=== PATIENT | male | born 1955 | race Caucasian/White ===

== ENCOUNTER 2017-11-22 17:51 | Observation (INO) | payer BC ==
--- NOTE | 2017-11-22 18:32 | ED ---
HPI Chest Pain - HPI Summary HPI Summary: A 62 y/o M arrives by car presents to ED with c/o sudden onset L-sided CP onset approx 1700 mostly resolved at bedside. CP described as pressure. Associated sx : flushing of face and ears; L-sided pressure to neck, UE; mild SOB. Denies dyspnea, pedal edema. Last episode of CP similar to these sx was a few months ago. On 10/30/17, he had a catherization performed by Dr. Early, executive sous chef in [place], [place]. 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 Pt was at rest at onset. No PMHx : DVT, PE. No drugs, rare ETOH. This is wendye, Janet Peña, documenting for attending Dr. Wolf Panchal MD. - History of Current Complaint Chief Complaint: EDChestPainROMI Time Seen by Provider: 11/22/17 18:17 Hx Obtained From: Patient Onset/Duration: Started Hours Ago, Resolved - mostly Timing: Constant Initial Severity: Moderate Current Severity: Mild Pain Intensity: 2 Pain Scale Used: 0-10 Numeric Chest Pain Location: Left Anterior, Left Lateral Character: Pressure/Squeezing - Allergy/Home Medications Allergies/Adverse Reactions: Allergies Allergy/AdvReac Type Severity Reaction Status Date / Time No Known Allergies Allergy Verified 06/07/12 17:11 Home Medications: Home Medications Aspirin EC TAB* [Ecotrin EC Low Dose 81 MG*] 81 mg PO DAILY 11/22/17 [History Confirmed 11/22/17] Clopidogrel TAB* [Plavix TAB*] 75 mg PO DAILY 11/22/17 [History Confirmed ] Glucosam/Griffin-Msm1/C/Goran/Bosw [Osteo Bi-Flex Advanced Tr] 1 tab PO DAILY [History Confirmed 11/22/17] Lansoprazole CAP (NF) [Prevacid CAP (NF)] 30 mg PO QAM 11/22/17 [History Confirmed 11/22/17] Lutein/Zeaxanthin [Ocuvite Lutein 25 25-5 mg] 1 cap PO QAM 11/22/17 [History Confirmed 11/22/17] Metoprolol Succinate XL TAB* [Toprol XL TAB*] 25 mg PO QPM 11/22/17 [History Confirmed 11/22/17] [place]-3 Fatty Acids (Nf) [Fish Oil (NF)] 1,000 mg PO DAILY 11/22/17 [History Confirmed 11/22/17] Ubidecarenone [Co Q-10] 100 mg PO DAILY 11/22/17 [History Confirmed 11/22/17] guaiFENesin ER TAB [Mucinex*] 600 mg PO BID PRN 11/22/17 [History Confirmed 06/10] PMH/Surg Hx/FS Hx/Imm Hx Previously Healthy: No Cardiovascular History: Reports: Hx Hypertension, Other Cardiovascular Problems/ Disorders - HAS HAD HEART WORKUP AT [facility] [address] GI History: Reports: Other GI Disorders - diverticulosis, choleycystitis Denies: Hx Cirrhosis Sensory History: Reports: Other Sensory Impairments - central serous retinopathy Denies: Hx Contacts or Glasses, Hx Hearing Aid Opthamlomology History: Reports: Other Sensory Impairments - central serous retinopathy Denies: Hx Contacts or Glasses Neurological History: Reports: Other Neuro Impairments/Disorders - vestibular neuritis Infectious Disease History: No Infectious Disease History: Denies: Hx Clostridium Difficile, Hx Hepatitis, Hx Human Immunodeficiency Virus (HIV), Hx Shingles, Hx Tuberculosis, Traveled Outside the [place] in Last 30 Days - Family History Family History: neg anaesthesia reaction - Social History 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 Negative: Fever, Chills Negative: Erythema Negative: Sore Throat Positive: Chest Pain Positive: Shortness Of Breath - mild. Negative: Cough Negative: Abdominal Pain, Vomiting, Nausea Negative: dysuria, hematuria Positive: Other - mild "pressure" to neck, UE. Negative: Myalgia, Edema Negative: Rash Neurological: Other - neg: dizziness All Other Systems Reviewed And Are Negative: Yes Physical Exam - Summary Physical Exam Summary: Constitutional: Well-developed, Well-nourished, Alert. (-) Distressed Skin: Warm, Dry HENT: Normocephalic; Atraumatic Eyes: Conjunctiva normal Neck: Musculoskeletal ROM normal neck. (-) JVD, (-) Stridor, (-) Tracheal deviation Cardio: Rhythm regular, rate normal, Heart sounds normal; Intact distal pulses; The pedal pulses are 2+ and symmetric. Radial pulses are 2+ and symmetric. (-) Murmur Pulmonary/Chest wall: Effort normal. (-) Respiratory distress, (-) Wheezes, (-) Rales Abd: Soft, (-) epigastric tenderness, (-) Distension, (-) Guarding, (-) Rebound Musculoskeletal: (-) Edema Lymph: (-) Cervical adenopathy Neuro: Alert, Oriented x3 Psych: Mood and affect Normal Triage Information Reviewed: Yes Vital Signs On Initial Exam: Initial Vitals Temp Pulse Resp BP Pulse Ox 97.8 F 67 19 167/106 96 11/22/17 17:57 11/22/17 17:57 11/22/17 17:57 11/22/17 17:57 11/22/17 17:57 Vital Signs Reviewed: Yes Diagnostics - Vital Signs Vital Signs Temp Pulse Resp BP Pulse Ox 11/22/17 17:57 97.8 F 67 19 167/106 96 - Laboratory Result Diagrams: 11/22/17 18:54 11/22/17 18:54 Lab Statement: Any lab studies that have been ordered have been reviewed, and results considered in the medical decision making process. - Radiology CXR Xray Interpretation: No Acute Changes - IMPRESSION: No active cardiopulmonary dz. ED physician has reviewed this report. Radiology Interpretation Completed By: Radiologist - EKG 1808 Cardiac Rate: Bradycardia - 54bpm EKG Rhythm: Sinus Bradycardia EKG Interpretation: no STEMI Chest Pain Course/Dx - Diagnoses Provider Diagnoses: Chest pain, unspecified - Provider Notifications Discussed Care Of Patient With: Vikki Gutierrez - hospitalist Time Discussed With Above Provider: 19:40 Instructed by Provider To: Admit As Inpatient Discharge - Sign-Out/Discharge Documenting (check all that apply): Patient Departure - Adm - Discharge Plan Disposition: ADMITTED TO [facility] Referrals: Ny Vu MD [Primary Care Provider] -
[2017-11-22] MEDS ORDERED: Nitroglycerin 2% OINT* 1 GM PAK TOPICAL ONE (18:40)
--- NOTE | 2017-11-22 18:53 | RAD ---
Indication: Chest pain. Single frontal view of the chest performed at 1829 hours was reviewed. Comparison is made with previous exam dated June 05, 2012. No mediastinal shift is noted. Heart is of normal size and configuration. Lung sims appear clear. IMPRESSION: NO ACTIVE CARDIOPULMONARY DISEASE IS NOTED.
[2017-11-22 19:03] LABS: ABS Basophils 0.1 10^3/ul (0-0.2); ABS Eosinophils 0.1 10^3/ul (0-0.6); ABS Lymphocytes 1.5 10^3/ul (1.0-4.8); ABS Monocytes 0.5 10^3/ul (0-0.8); ABS Neutrophils 3.4 10^3/ul (1.5-7.7); ABS Nucleated RBC 0 10^3/ul; Eosinophil % 2.6 % (0-6); Hematocrit 40 % (42-52); Hemoglobin 13.7 g/dl (14.0-18.0); Lymphocyte % 26.3 % (25-47); Mean Corpuscular HGB Conc 34 g/dl (31-36); Mean Corpuscular Hemoglobin 29 pg (27-31); Mean Corpuscular Volume 85 fL (80-94); Mean Platelet Volume 8.2 um3 (7.4-10.4); Nucleated Red Blood Cells % 0; Platelet Count 176 10^3/ul (150-450); Red Cell Distribution Width 14 % (10.5-15); White Blood Count 5.6 10^3/ul (3.5-10.8)
[2017-11-22 19:19] LABS: EGFR Non-African American 84.7 (>60)
[2017-11-22] MEDS ORDERED: Ondansetron INJ* 2 MG/ML VIAL IV PRN (20:18)
[2017-11-22] MEDS ORDERED: Acetaminophen TAB* 325 MG PO PRN (20:18)
[2017-11-22] MEDS ORDERED: amLODIPine TAB* 5 MG PO SCH (21:00)
--- NOTE | 2017-11-22 23:02 | HP ---
CC: Dr. Reardon * HISTORY AND PHYSICAL: DATE OF ADMISSION: 11/22/17 PRIMARY CARE PROVIDER: None. ATTENDING PHYSICIAN WHILE IN THE HOSPITAL: Vikki Sanches MD * (report dictated by Te Durbin NP). CONSULTING APPLICATIONS COORDINATOR: Dr. Reardon. CHIEF COMPLAINT: Chest pain. HISTORY OF PRESENT ILLNESS: Mr. Mei is a 62-year-old male patient who has a known history of coronary artery disease. He says he had a cath about a month ago in [place] and was told that he would need stents but did not undergo intervention for unknown reasons. We are trying to get records. He has a history of hypertension, GERD and hyperlipidemia. He gives a story that he has been having chest discomfort intermittently for the last year and half, he has noticed recently in the last several months. He has been having decreasing exercise tolerance, becoming more short of breath easily and he has been intermittently having chest discomfort. He saw a fisher quahog from [place] where he is from, he is up here visiting for a conference and he is from the area originally and he is visiting. He had a cath done and he says that he was told he had partial blockages of the circumflex and may be of the RCA. He comes in today because he was travelling over from [place] and that is where his conference was and he was coming to visit and he got out of his car and he noted that he started to do some walk, he was feeling lousy and he thought may be some walking will make him feel good and when he started walking, he started getting chest heaviness, pressure, discomfort that went into his shoulder and down his arm. He felt flushed. He was in the [place] area and he immediately called 911 and he came to the hospital. He says his discomfort is now gone. He has not had any more episodes and that was around 5:10 this afternoon he says. He denies any recent fevers or chills. He denies any calf pain, lower leg swelling, or any lower calf redness. He says that he did not feel short of breath or nauseous with this episode. It lasted several minutes, came into the ED today. Because of his exertional chest pain, his recent cath that he reports to us, we were asked to evaluate for admission. PAST MEDICAL HISTORY: Significant for; 1. Hypertension. 2. Hyperlipidemia. 3. GERD. 4. CAD. PAST SURGICAL HISTORY: 1. He has had a right knee arthroscopy. 2. Laparoscopic cholecystectomy. 3. Heart catheterization, he said done October 30 of this year. HOME MEDICATIONS: Include; 1. Metoprolol 25 mg p.o. at bedtime. 2. Aspirin 81 mg daily. 3. Mucinex 600 mg p.o. b.i.d. as needed. 4. Plavix 75 mg daily. 5. Coenzyme Q10 of 100 mg p.o. daily. 6. Osteo Bi-Flex 1 tablet p.o. daily. 7. [place]-3 fatty acid 1000 mg p.o. daily. 8. Ocuvite 1 capsule p.o. daily. 9. Prevacid 30 mg p.o. q.p.m. ALLERGIES TO MEDICATIONS: No known drug allergies. FAMILY HISTORY: Mother had history of an MA, brother had history of TIA, father had history of CHF. SOCIAL HISTORY: He does not smoke, he does not drink. Surrogate decision maker is his mother. REVIEW OF SYSTEMS: There is no documented fever. He is denying having any significant weight change. There is no double vision. There is no ear discharge. He is denying having any rhinorrhea. There was no sore throat, no thyroid enlargement. He did admit to chest pain per my HPI. There is no orthopnea, there is no nocturnal dyspnea. He is denying having any abdominal pain. There is no nausea, no vomiting, no dysuria. No frequency. There was no seizure. No loss of consciousness. No pruritus. No skin ulceration. Review of 14 systems completed, all others negative. PHYSICAL EXAMINATION GENERAL: At this time, Mr. Mei is a 62-year-old male patient who appears to be well nourished, well developed, he is sitting in the ED stretcher, does not appear to be in acute distress. VITAL SIGNS: Blood pressure 150/93, pulse of 59, respirations 10, O2 saturations 95%, temperature 97.8. HEENT: Head: Atraumatic, normocephalic. Eyes: EOMs are intact. Sclerae are anicteric and not pale. NECK: Supple. Throat: Oral mucosa appears to be moist. No oropharyngeal erythema. LUNGS: Clear to auscultation bilaterally. No wheezes, rales, or rhonchi. HEART: Sounds S1, S2. He had a regular rate and rhythm. No murmurs, rubs or gallops. ABDOMEN: Soft. It was flat, nontender. Bowel sounds are present. EXTREMITIES: Pulses were 2+ throughout, moving all 4 extremities with 5/5 strength. NEUROLOGIC: He is awake, he is alert. He is oriented x3. His tongue is midline. Paint Trimmer Pipe Bowls were equal. He had no gross focal deficits. SKIN: Grossly intact. LABORATORY DATA: Today are revealing WBC 5.6, RBC 4.70, hemoglobin 13.7, hematocrit 40, platelet count 176, sodium 143, potassium 3.5, chloride 103, bicarb 32, BUN 11, creatinine 0.91, glucose 102, lactate 0.9. Calcium 9.2, total bili 0.6. AST 19, ALT 17. Alk phos 55, troponin 0. Albumin of 4.2. Chest x-ray obtained today shows no active cardiopulmonary disease. He had an EKG obtained today showing sinus bradycardia at the rate of 54. He had no ST elevations. He had flat T waves in lead III only. Last EKG I have is from 5 years ago as T waves are flattened in lead III at that point as well, but no significant changes. Old medical records reviewed. ASSESSMENT AND PLAN: Mr. Mei is a 62-year-old male patient coming into the ED today, complains of chest discomfort that was exertional. He has had a heart catheterization done about a month ago which did show coronary artery disease and he was told that he was going to need stents. Unfortunately, we do not have access to his records but because of the exertional chest pain, he will be admitted under observatory status for; 1. Chest pain: This is probably angina. He is chest pain free now. He is on aspirin, Plavix. He is also on a beta jigna. We will continue these medications for the time being. I would like to get the cath report records. I have placed a consult to Cardiology. I will trend his troponin. I ordered an EKG for tomorrow morning, lipid panel and A1c and continue with maximum medical management. 2. Hypertension: His blood pressure is not well controlled. I am going to go ahead and give him 5 of Norvasc tonight and we will continue to follow. I will also continue his beta jigna. 3. Coronary artery disease: Again he is on aspirin, Plavix, beta jigna. We will continue. 4. Gastroesophageal reflux disease: Continue Prevacid. 5. Hyperlipidemia: We will check lipid panel in the morning. 6. DVT prophylaxis: He will be placed on heparin subcu. 7. Code status: He is full code. 8. Fluids, electrolyte, nutrition: He can have a heart-healthy diet. He will be n.p.o. after midnight. TIME SPENT: Time spent on the admission was 60 minutes, greater than half of the time was spent [id number] with the patient, obtaining my history and physical, the other half of the time was spent going over the plan of care with the patient and implementing the plan of care. I did discuss plan of care with my attending, Dr. Sanches, she is in agreement. Please note that the fisher quahog who did the heart catheterization was a Dr. Samson Delarosa and contact number there is [phone]. I will touch base with their office in the morning, they open at 8 o'clock. TE DURBIN, KOFFI [id number]/[facility] #: [id number] SURENDRA
[2017-11-22] MEDS: Heparin VIAL(*) 5000 UNITS/ML VIAL (FIVE THOUSAND) SUBCUT SCH (23:11)
[2017-11-23] MEDS: Heparin VIAL(*) 5000 UNITS/ML VIAL (FIVE THOUSAND) SUBCUT SCH (05:53)
[2017-11-23 06:21] LABS: ABS Basophils 0.1 10^3/ul (0-0.2); ABS Eosinophils 0.2 10^3/ul (0-0.6); ABS Lymphocytes 1.7 10^3/ul (1.0-4.8); ABS Monocytes 0.5 10^3/ul (0-0.8); ABS Neutrophils 3.2 10^3/ul (1.5-7.7); ABS Nucleated RBC 0 10^3/ul; Eosinophil % 3.5 % (0-6); Hematocrit 37 % (42-52); Hemoglobin 12.8 g/dl (14.0-18.0); Lymphocyte % 30.4 % (25-47); Mean Corpuscular HGB Conc 34 g/dl (31-36); Mean Corpuscular Hemoglobin 29 pg (27-31); Mean Corpuscular Volume 86 fL (80-94); Mean Platelet Volume 8.4 um3 (7.4-10.4); Nucleated Red Blood Cells % 0.1; Platelet Count 150 10^3/ul (150-450); Red Blood Count 4.33 10^6/ul (4.00-5.40); Red Cell Distribution Width 14 % (10.5-15); White Blood Count 5.7 10^3/ul (3.5-10.8)
[2017-11-23 06:39] LABS: EGFR Non-African American 96.9 (>60)
[2017-11-23 07:21] LABS: INR 0.96 (0.77-1.02)
[2017-11-23] MEDS ORDERED: CMC: Pantoprazole TAB (NF) 40 MG TAB PO SCH (09:00)
[2017-11-23] MEDS ORDERED: Clopidogrel TAB* 75 MG PO SCH (09:00)
[2017-11-23] MEDS ORDERED: Aspirin EC TAB* 81 MG TAB.EC PO SCH (09:00)
[2017-11-23] MEDS: KCL 20 MEQ/100 ML IVPREMIX* 20 MEQ/100 ML BAG IV SCH ×2 (09:51→11:56)
[2017-11-23 11:59] VITALS: BP 123/74
[2017-11-23] MEDS ORDERED: Potassium Chlor TAB* 20 MEQ TAB.ER PO SCH (12:00)
--- NOTE | 2017-11-23 15:36 | CONS ---
CC: Hospitalist Service; Dr. Hernández CARDIOLOGY CONSULT: DATE OF CONSULT: 11/23/17 HISTORY OF PRESENT ILLNESS: I was asked by hospitalist service to see this 62-year- old male patient , who lives in [place]. He is finishing some business, visiting [facility] and he had an episode of symptom of chest pain, lasted for about 15- minute and presented to the hospital after he called 911 and since then, he has been chest pain free. His trops x3 were 0. His EKG showed no acute ST-T daljit nges for ischemia or injury pattern. The patient said he had a cardiac catheterization done in [place], [place] on 10/30/17, he had some blockages and was recommended intervention with angioplasty and stenting, although it was not done for unknown reasons at the present time. Full cardiac cath report is pending at the moment. He is chest pain free now. He gives history of hypertension, hyperlipidem ia, although he is not on statin medication. He gives no symptoms of nausea, no vomiting, no shortne ss of breath, no jaw pain, no arm pain, no syncope, no dizziness, no hematochezia, no tachycardia, no palpitations, no history of myocardial infarction in the past, no history of diabetes mellitus, no h istory of congestive heart failure. He has been actually chest pain free. PAST MEDICAL HISTORY: Includes history of coronary artery disease, systemic arterial hypertension, h istory of hyperlipidemia, gastroesophageal reflux disease. PAST SURGICAL HISTORY: Includes right knee arthroscopy, laparoscopic cholecystectomy, and cardiac ca th done 10/30/17. MEDICATIONS: As an outpatient include: 1. Metoprolol 25 mg daily. 2. Aspirin 81 mg daily. 3. Plavix 75 mg daily. 4. CoQ10 100 mg daily. 5. [place]-3 fatty acid 1000 daily. 6. Prevacid 30 mg p.o. p.r.n. ALLERGIES: He had no known drug allergies. FAMILY HISTORY: His mom had history of coronary artery disease. SOCIAL HISTORY: He lives with his mom in [place]. He has 1 kid, doing well. He has no history of sm oking, no drinking, no history of illicit drug use. REVIEW OF SYSTEMS: His review of all other systems is essentially negative. PHYSICAL EXAM: On exam, he is awake, alert, oriented. He is not in acute distress. He is chest jarek n free. His vitals, his blood pressure is 110/65, pulse is 65, he is on sinus rhythm. Head and Neck Exam: Normocephalic, atraumatic head. Ears, nose, and throat are essentially benign. Neck: Supple . JVP is not elevated. No carotid bruits. No masses in the neck are appreciated. Chest: Clear to auscultation. No rales, no wheeze. No added sounds appreciated. Heart: Normal and regular, S1, S2. No added sound. No gallops, no rubs is appreciated. Abdomen: Benign, soft. Positive bowel sounds . Extremities: No edema, no cyanosis, no clubbing. Skin exam is normal. Psych: Normal affect and mood. RIB CLOTH KNITTER: No focal deficit is appreciated. DIAGNOSTIC STUDIES/LAB DATA: His EKG showed normal sinus rhythm, borderline left atrial abnormality, no acute ST-T changes suggestive for ischemia or injury. His labs, his sodium 143, potassium of 3.4, chloride 106, BUN 14, creatinine 0.81. His triglyceride 1 40, cholesterol 136, LDL 79, HDL 29. His white blood cell 5.7, hemoglobin 12.8, hematocrit 37, plate lets 150. His chest x-ray was reported to have no active cardiopulmonary disease. IMPRESSION: The patient is a 62-year-old male patient with: 1. Presentation with symptoms of chest pain, ruled out for myocardial infarction by negative troponi n. He is chest pain free. 2. The patient indicated that he had a cardiac cath in [place], [place] where he lives there, , with "blockages," was recommended angioplasty and stenting, although for unknown reasons to him a nd to us was not done. 3. Cardiac cath report is still pending, we are trying to obtain it from [facility]. 4. Systemic arterial hypertension. 5. Hyperlipidemia. 6. Nonspecific EKG abnormality. 7. Hypokalemia. 8. Family history of coronary artery disease. PLAN: The patient is currently chest pain free. He was ruled out with negative troponins x3. I dis cussed him with the hospitalist service. We will obtain and review his cardiac catheterization repor t done less than a month ago. He is to continue on aspirin, Plavix, beta-jigna, heparin. I will a dd statin and further recommendations will be pending his clinical outcome and the review of his card iac catheterization report. I answered all his concerns and questions up to his satisfaction. We wi ll follow him closely with you. [id number]/[facility] #: [id number]
[2017-11-23] MEDS ORDERED: Metoprolol Succinate XL TAB* 25 MG PO SCH (18:00)
[2017-11-23] MEDS ORDERED: Atorvastatin* 20 MG TAB PO SCH (21:00)
--- NOTE | 2017-11-24 13:40 | DS ---
CC: Dr. Ny Vu * DISCHARGE SUMMARY: DATE OF ADMISSION: 11/22/17 DATE OF DISCHARGE: 11/23/17 PRIMARY CARE PROVIDER: Dr. Ny Vu. MY ATTENDING WHILE IN THE HOSPITAL: Dr. Marianna Sherwood.* (DICTATED BY ROSELYN PIÑA) PRIMARY DISCHARGE DIAGNOSES: 1. Chest pain. 2. Coronary artery disease. SECONDARY DISCHARGE DIAGNOSES: 1. Hypertension. 2. Hyperlipidemia. 3. Gastroesophageal reflux disease. STUDIES DONE WHILE IN THE HOSPITAL: Electrocardiogram, 11/22/17, shows normal sinus rhythm, flattened T-waves in lead III. No other significant abnormalities. Repeat EKG from 11/23/17 shows no changes, rate of 49, QTc of 445, normal axis. Chest x-ray from 11/22/17 read as no active cardiopulmonary disease. MEDICATIONS AT DISCHARGE: 1. Metoprolol succinate 25 mg p.o. q.p.m. 2. Aspirin 81 mg p.o. daily. 3. Guaifenesin 600 mg p.o. b.i.d. as needed. 4. Clopidogrel 75 mg p.o. daily. 5. CoQ10 100 mg p.o. daily. 6. Osteo Bi-Flex 1 tab p.o. daily. 7. [place]-3 fatty acids 1000 mg p.o. daily. 8. Ocuvite 1 cap p.o. q.a.m. 9. Lansoprazole 30 mg p.o. q.a.m. 10. Atorvastatin 20 mg p.o. nightly. New medications at discharge: Lipitor. HOSPITAL COURSE: This is a brief summary of the patient's presentation. For more details, please see history and physical from Te Durbin NP, on . In brief, the patient is a 62-year-old male with past medical history significant for the above, who presented with intermittent chest discomfort for a year and a half, became worse over the last several months with decreasing exercise tolerance and shortness of breath on exertion. No other signs of congestive heart failure. The patient had a catheterization with his combat rifle crewmember in [place] on 09/30/17, which showed blockages in his arteries of 68% in the dominant RCA and 50% in the non- dominant circumflex. The patient came in because he felt poorly and had chest heaviness and discomfort that radiate to his shoulder and left arm. The patient's chest discomfort resolved on its own without intervention, nitroglycerin. The patient was admitted to the hospital. The patient's EKG was unremarkable. The patient had troponin x3 that were negative. The patient was slightly anemic, hypokalemic. The patient' s LDL cholesterol 79, HDL cholesterol 28.6. The patient's hemoglobin A1c was 5.6. The patient was seen in consultation by Dr. Hernández, who contacted his combat rifle crewmember from [place] and confirmed the results of the catheterization. It was recommended that the patient have a repeat catheterization with stent placement given his anginal symptoms. The patient stated that he preferred this to be done in [place] with his regular combat rifle crewmember and the patient was not having an active CT and this was deemed appropriate. The patient was ambulated around the unit. He was ambulated for approximately 7 minutes with no anginal chest discomfort. The patient was stable and amenable for discharge on 11/23/17. PHYSICAL EXAM ON DAY OF DISCHARGE: General: The patient is a 62-year-old male , who appears stated age and sitting comfortably in bed, in no acute distress. Vital Signs: At the time of evaluation, temperature 98.0, pulse rate 83, respiratory rate , oxygen saturation 98% on room air, blood pressure 123/ 74. HEENT: Head normocephalic, atraumatic. Sclerae anicteric. No conjunctival injection. Nasal mucosa moist. Oral mucosa moist. No pharyngeal erythema, discharge, or exudate. Neck: Supple, nontender. No lymphadenopathy. No carotid bruits auscultated. No JVD. Cardiac: Regular rate and rhythm. No clicks, murmurs, gallops, or rubs. Pulses 2+ in bilateral dorsalis pedis, posterior tibial, and radial areas. Respiratory: Clear to auscultation bilaterally. No wheezes, rales, or rhonchi. Good air exchange bilaterally. Abdomen: Soft, nontender, and nondistended. Bowel sounds present, normoactive in all 4 quadrants. No hepatosplenomegaly. No abdominal bruits auscultated. No hepatojugular reflux. Genitourinary: No suprapubic or CVA tenderness. Skin : Clean, dry, and intact. No rash. Neuro: Cranial nerves II through XII intact. No focal deficits. Alert and oriented x3. Psychiatric: Pleasant, cooperative. DISCHARGE PLAN: The patient will be discharged to home. The patient will be returning to [place] in approximately 2 weeks. The patient will at that time contact his primary care provider and his combat rifle crewmember for general medical management and to set up cardiac catheterization as discussed for his cardiology care. The patient to return the hospital for any alarming symptoms such as recurrent chest pain, severe shortness of breath, syncope, palpitations , or other alarming symptoms. The patient's heart rate was intermittently low while in the hospital, but he was asymptomatic during these episodes. The patient's metoprolol will be continued at this time; however, the ongoing appropriateness of this medication should be evaluated. TIME SPENT: Approximately 60 minutes was spent on this discharge, 30 of which was spent [id number] with the patient obtaining physical and discussing the treatment plan. ROSELYN PIÑA [id number]/[facility] #: [id number] SURENDRA
== END 2017-11-23 13:45 | disposition home or self-care (01) ==
LOC: ED 17:51 → MEDTELE 20:24
PROVIDERS: ADMIT Internal Medicine; ATTEND Internal Medicine
DX: R07.9 Chest pain, unspecified (principal); I25.10 Atherosclerotic heart disease of native coronary artery without angina pectoris; I10 Essential (primary) hypertension; E78.5 Hyperlipidemia, unspecified; K21.9 Gastro-esophageal reflux disease without esophagitis; Z79.82 Long term (current) use of aspirin
CPT/HCPCS: 36415; 71045; 80048; 80053; 80061; 83036; 83605; 84484; 85025; 85379; 85610; 93005; 99284; A9270-GY; G0378; J1644; J3480